=== PATIENT | male | born 1970 | race Caucasian/White ===

== ENCOUNTER 2016-11-29 12:33 | Emergency (ER) | payer MEDICAID ==
[~2016-11-29] VITALS: Ht 162.6 cm; Wt 73.5 kg
[~2016-11-29 12:33] MED LIST: EPIN0.3P4 IM; HYDR-3011 PO; HYDR-3720 PO; IBUP800T25 PO; METH-70 PO; PRED20TA PO
[2016-11-29 12:47] VITALS: Ht 162.6 cm; Wt 73.5 kg
[2016-11-29] MEDS ORDERED: SOD CHLORIDE 0.9% 1,000 ML IV STA (16:58)
[2016-11-29] MEDS ORDERED: ONDANSETRON 4 MG INJ IV STA (16:58)
[2016-11-29] MEDS ORDERED: KETOROLAC 30 MG INJ IV STA (16:58)
[2016-11-29 17:19] LABS: ADD SCAN DIFF NO
[2016-11-29 17:21] LABS: ADD UMIC NO; BASOPHIL # 0.1 10^3/ul (0.0-0.1); BASOPHILS % 0.6 % (0.0-2.0); EOSINOPHILS # 0.2 10^3/ul (0.0-0.5); EOSINOPHILS % 1.7 % (0.0-7.0); HEMATOCRIT 48.5 % (42.0-52.0); HEMOGLOBIN 16.3 g/dl (14.0-18.0); LYMPHOCYTES # 3.5 10^3/ul (0.8-2.9); LYMPHOCYTES % 39.9 % (15.0-51.0); MEAN CORPUSCULAR HEMOGLOBIN 29.6 pg (29.0-33.0); MEAN CORPUSCULAR HGB CONC 33.6 g/dl (32.0-37.0); MEAN PLATELET VOLUME 10.7 fl (7.4-10.4); MONOCYTE # 0.7 10^3/ul (0.3-0.9); MONOCYTES % 7.6 % (0.0-11.0); NEUTROPHIL # 4.4 10^3/ul (1.6-7.5); PLATELET COUNT 237 10^3/UL (140-415); RED BLOOD COUNT 5.51 10^6/ul (4.70-6.10); RED CELL DISTRIBUTION WIDTH 13.1 % (11.5-14.5); URINE BILIRUBIN (Dip) NEGATIVE (NEGATIVE); URINE BLOOD (Dip) NEGATIVE (NEGATIVE); URINE COLOR LT. YELLOW (YELLOW); URINE GLUCOSE (Dip) NEGATIVE (NEGATIVE); URINE KETONES (Dip) NEGATIVE (NEGATIVE); URINE LEUKOCYTE ESTERASE (Dip) NEGATIVE (NEGATIVE); URINE NITRITE (Dip) NEGATIVE (NEGATIVE); URINE TOTAL PROTEIN (Dip) NEGATIVE (NEGATIVE); URINE UROBILINOGEN (Dip) 0.2 E.U./dL (0.1-1.0); WHITE BLOOD COUNT 8.9 10^3/ul (4.8-10.8)
[2016-11-29 17:40] LABS: ALBUMIN 4.4 g/dl (3.3-4.9); POTASSIUM 3.7 mmol/L (3.5-5.1)
[2016-11-29 17:42] LABS: BILIRUBIN,INDIRECT 0.2 mg/dl (0-1.1); BILIRUBIN,TOTAL 0.2 mg/dl (0.2-1.3); CREATININE 0.66 mg/dl (0.61-1.24)
[2016-11-29 17:43] LABS: ALBUMIN/GLOBULIN RATIO 1.37; CALCIUM 9.2 mg/dl (8.4-10.2); TOTAL PROTEIN 7.6 g/dl (6.1-8.1)
--- NOTE | 2016-11-29 18:32 | ERD ---
ER Documentation Chief Complaint Date/Time DATE: 11/29/16 TIME: 18:26 Chief Complaint ap with n/v; chills x 3 days HPI This is a 46-year-old male that presents to the ER with left-sided flank pain that radiates to his abdomen. Patient has had nausea vomiting and chills. Vomiting is nonbilious nonbloody. He does not have any diarrhea. He does not have any fevers. Pain is severe and intermittent and sharp in quality. Patient has not traveled anywhere. ROS 12 point review of systems was done, all negative except per HPI. Medications Home Meds Active Scripts Ibuprofen* (Motrin*) 600 Mg Tab, 600 MG PO Q6, #30 TAB Prov:KIMBERLY TORRE 11/29/16 Ondansetron Hcl* (Zofran*) 4 Mg Tablet, 4 MG PO Q6H for NAUSEA AND/OR VOMITING, #30 TAB Prov:KIMBERLY TORRE 11/29/16 Hydrocodone/Acetaminophen ([place] 5-325 Tablet) 1 Each Tablet, 1 TAB PO Q6H Y for PAIN, #15 TAB Prov:KIMBERLY TORRE 11/29/16 Epinephrine (Epipen 2-Akshat) 0.3 Mg/0.3 Ml Pen.injctr, 0.3 MG IM DIRECTED Y for ALLERGIC REACTION, #1 EA Prov:LISA ARANGO MD 02/16/16 Hydroxyzine Hcl* (Hydroxyzine Hcl*) 25 Mg Tablet, 25 MG PO Q8H Y for ITCHING, # 30 TAB Prov:LISA ARANGO MD 02/16/16 Prednisone* (Prednisone*) 20 Mg Tab, 40 MG PO DAILY for 4 Days, TAB Prov:LISA ARANGO MD 02/16/16 Methocarbamol* (Robaxin*) 750 Mg Tablet, 750 MG PO TID, #20 TAB Prov:MARISSA CUISTPRINCE APaula DO 11/20/15 Hydrocodone Bit-Acetaminophen* ([place]*) 7.5-325 Tablet, 2 TAB PO Q4H Y for PAIN , #20 TAB Prov:MARISSA CUISTPRINCE APaula DO 11/20/15 Ibuprofen* (Motrin*) 800 Mg Tab, 800 MG PO Q6, #30 TAB Prov:MARISSA CUISTOLOS A. DO 11/20/15 Allergies Allergies: Coded Allergies: No Known Allergy (Unverified , 12/31/11) PMhx/Soc History of Surgery: Yes (appendectomy) Anesthesia Reaction: No Hx Neurological Disorder: No Hx Respiratory Disorders: No Hx Cardiac Disorders: No Hx Psychiatric Problems: No Hx Miscellaneous Medical Probl: Yes (gallstones) Hx Alcohol Use: No Hx Substance Use: No Hx Tobacco Use: No Physical Exam Vitals Vital Signs Date Time Temp Pulse Resp B/P Pulse Ox O2 Delivery O2 Flow Rate FiO2 11/29/16 12:47 98.1 92 18 121/84 98 Physical Exam GENERAL: The patient is well developed and appropriate for usual state of health , in no apparent distress. HEENT: Atraumatic. CHEST: Clear to auscultation bilaterally. There are no rales, wheezes or rhonchi. HEART: Regular rate and rhythm. No murmurs, clicks, rubs or gallops. ABDOMEN: Soft, nontender and nondistended. Good bowel sounds. No rebound or guarding. No gross peritonitis. No gross organomegaly or masses. No Marx sign or McBurney point tenderness. Tender to palpation in the left flank and in the LLQ BACK: No midline or flank tenderness. NEURO: Alert and oriented. SKIN: There is no apparent rash or petechia. The skin is warm and dry. Result Diagram: 11/29/16 1715 11/29/16 1715 Results 24 hrs Laboratory Tests Test 11/29/16 17:15 Alanine Aminotransferase (ALT/SGPT) 37IU/L Albumin 4.4g/dl Albumin/Globulin Ratio 1.37 Alkaline Phosphatase 71IU/L Anion Gap 17 Aspartate Amino Transf (AST/SGOT) 24IU/L Basophils # 0.110^3/ul Basophils % 0.6% Blood Urea Nitrogen 15mg/dl Calcium Level 9.2mg/dl Carbon Dioxide Level 27mmol/L Chloride Level 104mmol/L Creatinine 0.66mg/dl Direct Bilirubin 0.00mg/dl Eosinophils # 0.210^3/ul Eosinophils % 1.7% Globulin 3.20g/dl Glucose Level 86mg/dl Hematocrit 48.5% Hemoglobin 16.3g/dl Indirect Bilirubin 0.2mg/dl Lipase 71U/L Lymphocytes # 3.510^3/ul Lymphocytes % 39.9% Mean Corpuscular Hemoglobin 29.6pg Mean Corpuscular Hemoglobin Concent 33.6g/dl Mean Corpuscular Volume 88.0fl Mean Platelet Volume 10.7fl Monocytes # 0.710^3/ul Monocytes % 7.6% Neutrophils # 4.410^3/ul Neutrophils % 50.0% Nucleated Red Blood Cells # 0.010^3/ul Nucleated Red Blood Cells % 0.0/100WBC Platelet Count 87341^3/UL Potassium Level 3.7mmol/L Red Blood Count 5.5110^6/ul Red Cell Distribution Width 13.1% Sodium Level 144mmol/L Total Bilirubin 0.2mg/dl Total Protein 7.6g/dl Urine Bilirubin NEGATIVE Urine Clarity CLEAR Urine Color LT. YELLOW Urine Glucose NEGATIVE% Urine Hemoglobin NEGATIVE Urine Ketones NEGATIVE Urine Leukocyte Esterase NEGATIVE Urine Nitrite NEGATIVE Urine Specific [place] >=1.030 Urine Total Protein NEGATIVE Urine Urobilinogen 0.2 E.U./dL Urine pH 6.0 White Blood Count 8.910^3/ul Current Medications Medications (Trade) Dose Ordered Sig/Rell Route PRN Reason Start Time Stop Time Status Last Admin Dose Admin Sodium Chloride (NS) 1,000 ml @ 1,000 mls/hr Q1H STAT IV 11/29/16 16:58 11/29/16 17:57 DC 11/29/16 17:14 Ondansetron HCl (Zofran Inj) 4 mg ONCE STAT IV 11/29/16 16:58 11/29/16 17:00 DC 11/29/16 17:14 Ketorolac Tromethamine 30 mg 30 mg ONCE STAT IV 11/29/16 16:58 11/29/16 17:00 DC 11/29/16 17:14 Sodium Chloride (NS) 1,000 ml @ 1,000 mls/hr Q1H ONCE IV 11/29/16 19:00 11/29/16 19:59 11/29/16 19:26 Procedures/MDM EKG was taken and read by Dr. San [address] elevation no t wave inversion. Differential Diagnosis: GERD, gastritis, peptic ulcer disease, pancreatitis, cholecystitis, choledocholithiasis, biliary colic, cholangitis, [id number] , ACS/MO, Pnuemonia, diverticulitis, abdominal abscess, urolithiasis, sick, obstructive stone, AAA. This is a 46-year-old male presents to the ER with left -sided flank pain that radiates to his left abdomen. At this time there is no evidence of nephrolithiasis. There is no evidence of urinary tract infection, suspicion for pyelonephritis is low. Patient was found to have some gallstones. I doubt that this is related to patient's pain as he is complaining of left-sided abdominal pain. At this time etiology of his abdominal pain is unknown however there is no evidence for acute abdomen. His physical examination is benign he is afebrile and well-appearing. He will be sent home with Marilynn Vogel. Please follow-up with his primary care doctor within 1-2 days or return to ER sooner if symptoms worsen. My medical decision making was shared with the patient, he understands and agrees with plan. Departure Diagnosis: Primary Impression: Abdominal pain Condition: Stable KIMBERLY TORRE Nov 29, 2016 18:32
[2016-11-29] MEDS ORDERED: SOD CHLORIDE 0.9% 1,000 ML IV ONE (19:00)
--- NOTE | 2016-11-29 19:11 | RADRPT ---
PROCEDURE: CT Abdomen and Pelvis without contrast. CLINICAL INDICATION: Left flank pain and abdominal pain TECHNIQUE: CT scan of the abdomen and pelvis without contrast was performed without intravenous co ntrast. Coronal and sagittal reformatted images were obtained from the axial source images. Images were reviewed on a high-resolution PACS workstation. CTDI 13 mGy, DLP 717 mGy-cm One or more of the following dose reduction techniques were used: Automated exposure control Adjustment of the mA and/or kV according to patient size. Use of iterative reconstruction technique. COMPARISON: 02/11/2015 FINDINGS: There is mild bibasilar atelectasis. The heart size is normal. The aorta and its branches are normal in size and caliber. The kidneys are symmetric in size and density. There is no perinephric fat stranding. There is no ne phroureterolithiasis or hydronephrosis. The ureters are normal in course and caliber. Evaluation of solid organs is limited due to the lack of intravenous contrast. There are several gal lstones within the gallbladder as seen on the prior study. The liver is unremarkable. The spleen, adrenal glands, and pancreas are unremarkable. Evaluation of the gastrointestinal tract is limited due to the lack of oral contrast. The esophagus and stomach are unremarkable. The small bowel loops are normal in caliber without evidence of smal l bowel obstruction. There are several diverticula within the descending and sigmoid colon without evidence for diverticulitis. The appendix is not definitively visualized. There is no free intrape ritoneal fluid or pneumoperitoneum. There is no mesenteric, retroperitoneal, or pelvic lymphadenopathy. The bladder is mildly distended, but grossly unremarkable. The prostate and seminal vesicles are unr emarkable. There is no pelvic free fluid. There is slight prominence of fat within the bilateral in guinal canals. There are no acute fractures. Minimal degenerative disk disease is noted within the thoracolumbar s pine with small Schmorl's nodes at several levels. RPTAT: HTLT IMPRESSION: 1. No acute intra-abdominal abnormality. No nephroureterolithiasis or hydronephrosis. 2. Cholelithiasis. .Nicole Garsia MD, MD Date Time Electronically viewed and signed by .Nicole Garsia MD, MD on 11/29/2016 19:10 .T/
[2016-11-29] MEDS ORDERED: HYDR-906 PO (19:23)
[2016-11-29] MEDS ORDERED: ONDA4TAB8 PO (19:24)
[2016-11-29] MEDS ORDERED: IBUP-1542 PO (19:24)
[2016-11-29 21:28] VITALS: BP 124/67; PULSE 60; RESP 18; TEMP 98
== END 2016-11-29 21:30 | disposition home or self-care (01) ==
LOC: FTE 12:33
DX: R10.32 Left lower quadrant pain (principal); R11.2 Nausea with vomiting, unspecified
CPT/HCPCS: 36415; 74176; 80053; 81003; 83690; 85025; 93005; 96374; 96375; J1885; J2405; J7030; Z7502

== ENCOUNTER 2017-02-26 21:30 | Emergency (ER) | payer MEDICAID ==
[~2017-02-26] VITALS: Ht 162.6 cm; Wt 77.2 kg
[~2017-02-26 21:30] MED LIST changes: +HYDR-906 PO; +IBUP-1542 PO; +ONDA4TAB8 PO
[2017-02-26 21:33] VITALS: Ht 162.6 cm; Wt 77.2 kg
[2017-02-26] MEDS ORDERED: ONDANSETRON (ODT) 4 MG TAB ODT STA (23:53)
[2017-02-27] MEDS ORDERED: ALPRAZOLAM 1 MG TAB PO ONE
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
--- NOTE | 2017-02-27 02:38 | RADRPT ---
PROCEDURE: XR Chest. CLINICAL INDICATION: Chest pain TECHNIQUE: AP Portable chest. COMPARISON: 11/20/2015 FINDINGS: There is mild cardiomegaly. The lungs are clear. The osseous structures are unremarkable. IMPRESSION: No acute findings. RPTAT: HIKT .James Valencia MD, Date Time Electronically viewed and signed by .James Valencia MD, MD on 02/27/2017 02:38 .T/
[2017-02-27] MEDS ORDERED: ALPR0.25 PO (02:49)
[2017-02-27 02:59] VITALS: BP 132/78; PULSE 82; RESP 20; TEMP 98.6
== END 2017-02-27 03:00 | disposition home or self-care (01) ==
LOC: FTE 21:30
DX: F41.9 Anxiety disorder, unspecified (principal); R07.9 Chest pain, unspecified
CPT/HCPCS: 71010; 93005; Z7502; Z7610

== ENCOUNTER 2017-03-11 16:43 | Emergency (ER) | payer MEDICAID ==
[~2017-03-11] VITALS: Ht 152.4 cm; Wt 70.0 kg
[~2017-03-11 16:43] MED LIST changes: +ALPR0.25 PO
[2017-03-11 16:46] VITALS: Ht 152.4 cm; Wt 70.0 kg
[2017-03-11] MEDS ORDERED: IBUP-1542 PO (17:29)
[2017-03-11] MEDS ORDERED: KETOROLAC 30 MG INJ IM STA (18:16)
[2017-03-11] MEDS ORDERED: ONDANSETRON (ODT) 4 MG TAB ODT STA (18:16)
[2017-03-11] MEDS ORDERED: HYDR-902 PO (18:17)
[2017-03-11] MEDS ORDERED: ONDA4TAB14 PO (18:17)
--- NOTE | 2017-03-11 18:19 | QN ---
Documentation Comment The patient was seen, evaluated, treated and discharged from ER 2. Prior to walking out the patient complained that he did not receive an injection for pain medication. He describes approximately 1 month of shoulder pain. He states 3-4 visits to recent emergency room for pain. He is demanding IV or IM narcotic injection. Patient was diagnosed with a rotator cuff injury. The patient was informed that I will not provide him with IV or IM narcotics but I am happy to provide him with an injection of Toradol and provide him with oral narcotic pain medication for what appears to be a chronic shoulder injury. A carry out clerk and shelf stocker was used. Prior to leaving the emergency room the patient was given 30 mg IM Toradol, 10 mg [place] and Zofran. Prescription for [place] 12 tablets will be given to the patient. Please see documentation by physician's medical assistant float for full ER course diagnostic workup and discharge planning. KHUSHI JOHNSON MD Mar 11, 2017 18:19
[2017-03-11] MEDS ORDERED: HYDROCODONE/APAP (10/325) TAB PO ONE (18:30)
--- NOTE | 2017-03-16 01:23 | ERA ---
ER Documentation Chief Complaint Date/Time DATE: 03/16/17 TIME: 01:15 Chief Complaint Complains of arm pain here for a recheck HPI This is a 46-year-old male presents to the ED with a chief complaint of left shoulder pain. Patient has been seen at additional emergency rooms with same complaint. 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 Describes the pain is worse with movement and palpation. Patient states that the pain is 10 out of 10 and has been having trouble sleeping on the side. Denies mechanism of injury, history of trauma, medical conditions with similar symptoms in the past. ROS All systems reviewed and are negative except as per history of present illness. Medications Home Meds Active Scripts Ibuprofen* (Motrin*) 400 Mg Tab, 400 MG PO Q6, #30 TAB Prov:KASHMIR RECIO PA-C 03/13/17 Ondansetron (Ondansetron Odt) 4 Mg Tab.rapdis, 4 MG PO Q6H Y for NAUSEA AND/OR VOMITING, #30 TAB Prov:KHUSHI JOHNSON MD 03/11/17 Hydrocodone/Acetaminophen ([place] 10-325 Tablet) 1 Each Tablet, 1 TAB PO Q6H Y for PAIN, #12 TAB Prov:KHUSHI JOHNSON MD 03/11/17 Ibuprofen* (Motrin*) 600 Mg Tab, 600 MG PO Q6H Y for PAIN AND OR ELEVATED TEMP, #30 TAB Prov:KASHMIR RECIO PA-C 03/11/17 Alprazolam* (Xanax*) 0.25 Mg Tablet, 0.25 MG PO Q8H Y for ANXIETY, #10 TAB Prov:IVSHAL RIBERA NP 02/27/17 Ibuprofen* (Motrin*) 600 Mg Tab, 600 MG PO Q6, #30 TAB Prov:KIMBERLY TORRE 11/29/16 Ondansetron Hcl* (Zofran*) 4 Mg Tablet, 4 MG PO Q6H for NAUSEA AND/OR VOMITING, #30 TAB Prov:KIMBERLY TORRE C 11/29/16 Hydrocodone/Acetaminophen ([place] 5-325 Tablet) 1 Each Tablet, 1 TAB PO Q6H Y for PAIN, #15 TAB Prov:KIMBERLY TORRE 11/29/16 Epinephrine (Epipen 2-Akshat) 0.3 Mg/0.3 Ml Pen.injctr, 0.3 MG IM DIRECTED Y for ALLERGIC REACTION, #1 EA Prov:LISA ARANGO MD 02/16/16 Hydroxyzine Hcl* (Hydroxyzine Hcl*) 25 Mg Tablet, 25 MG PO Q8H Y for ITCHING, # 30 TAB Prov:LISA ARANGO MD 02/16/16 Prednisone* (Prednisone*) 20 Mg Tab, 40 MG PO DAILY for 4 Days, TAB Prov:LISA ARANGO MD 02/16/16 Methocarbamol* (Robaxin*) 750 Mg Tablet, 750 MG PO TID, #20 TAB Prov:LEKKOSMARISSASTOLOS A. DO 11/20/15 Hydrocodone Bit-Acetaminophen* ([place]*) 7.5-325 Tablet, 2 TAB PO Q4H Y for PAIN , #20 TAB Prov:LEDANIELLAOSAPOSTOLOS A. DO 11/20/15 Ibuprofen* (Motrin*) 800 Mg Tab, 800 MG PO Q6, #30 TAB Prov:LEKKOSAPOSTOLOS A. DO 11/20/15 Allergies Allergies: Coded Allergies: No Known Allergy (Unverified , 12/31/11) PMhx/Soc History of Surgery: Yes (appendectomy) Anesthesia Reaction: No Hx Neurological Disorder: No Hx Respiratory Disorders: No Hx Cardiac Disorders: No Hx Psychiatric Problems: No Hx Miscellaneous Medical Probl: Yes (gallstones) Hx Alcohol Use: No Hx Substance Use: No Hx Tobacco Use: No Smoking Status: Never smoker Physical Exam Physical Exam Const: Well-appearing 46-year-old male in mild distress. Head: Atraumatic Eyes: Normal Conjunctiva ENT: Normal External Ears, Nose and Mouth. Neck: Full range of motion..~ No meningismus. Resp: Clear to auscultation bilaterally Cardio: Regular rate and rhythm, no murmurs. Chest wall was tender to palpation from the anterior to posterior axillary line on the left side. Very light palpation reproduced pain. Deep inspiration does not reproduce pain. No hematoma or other skin abnormalities visualized. Abd: Soft, non tender, non distended. Normal bowel sounds Skin: No petechiae or rashes Back: No midline or flank tenderness Ext: Left shoulder limited range of motion secondary to pain. Physical examination was limited due to patient compliance. No tenderness to the left shoulder or AC joint. No step-off palpated. No laxity of ligaments. No cyanosis, or edema Neur: Awake and alert Psych: Normal Mood and Affect Results 24 hrs Current Medications Medications (Trade) Dose Ordered Sig/Rell Route PRN Reason Start Time Stop Time Status Last Admin Dose Admin Ketorolac Tromethamine (Toradol) 30 mg ONCE STAT IM 03/11/17 18:16 03/11/17 18:18 DC 03/11/17 18:24 Acetaminophen/ Hydrocodone Bitart ([place] (10/325)) 1 tab ONCE ONCE PO 03/11/17 18:30 03/11/17 18:31 DC 03/11/17 18:25 Ondansetron HCl (Zofran Odt) 4 mg ONCE STAT ODT 03/11/17 18:16 03/11/17 18:18 DC 03/11/17 18:24 Procedures/MDM Patient presents with signs and symptoms of rotator cuff syndrome as described in history and physical examination. Physical examination was limited due to patient compliance. There is no mechanism of injury and I have very little suspicion for any bony pathology at this time. Patient exhibited chest wall pain that was most consistent with costochondritis versus fibromyalgia type symptoms. Patient will be discharged with ibuprofen for pain relief as this is drug of choice. I have little suspicion for compartment syndrome or other causes of neurovascular compromise at this time. Patient has requested narcotics but have advised him that long-term narcotics are not the role of the ED and to be treated with such medications he should seek evaluation by mobile paint specialist. Have also advised the patient to follow-up with Ortho. Patient's vitals are stable and his current condition is appropriate for discharge. Patient will be discharged with ibuprofen. After much discussion the patient has agreed to the plan of management. Patient has no other complaints will be discharged at this time. Departure Diagnosis: Primary Impression: Rotator cuff syndrome of left shoulder Additional Impression: Costochondritis Condition: Stable Patient Instructions: Chest Wall Pain, Costochondritis, Tendonitis Referrals: COMMUNITY CLINICS YOU HAVE RECEIVED A MEDICAL SCREENING EXAM AND THE RESULTS INDICATE THAT YOU DO NOT HAVE A CONDITION THAT REQUIRES URGENT TREATMENT IN THE EMERGENCY DEPARTMENT. FURTHER EVALUATION AND TREATMENT OF YOUR CONDITION CAN WAIT UNTIL YOU ARE SEEN IN YOUR DOCTORS OFFICE WITHIN THE NEXT 1-2 DAYS. IT IS YOUR RESPONSIBILITY TO MAKE AN APPOINTMENT FOR FOLOW-UP CARE. IF YOU HAVE A PRIMARY DOCTOR --you should call your primary doctor and schedule an appointment IF YOU DO NOT HAVE A PRIMARY DOCTOR YOU CAN CALL OUR PHYSICIAN REFERRAL HOTLINE AT IF YOU CAN NOT AFFORD TO SEE A PHYSICIAN YOU CAN CHOSE FROM THE FOLLOWING [facility] [address] [facility] [address] [facility] [address] [facility] [facility] [address] [facility] [address] [facility]. [facility] [address] [facility]. [facility] () ted se king hecho un examen mdico de control que le indica que no est en ellis condicin que requiera tratamiento urgente en el Departamento de Emergencia. Un estudio ms profundo y el tratamiento de hilton condicin pueden esperar sin ningn riesgo hasta que usted sea atendida/o en el consultorio de hilton mdico o ellis cl savanah. Es responsabilidad suya arreglar ellis gabby para el seguimiento del jevon. MANEJO DE CONDICIONES NO URGENTES EN EL FUTURO 1) Si usted tiene un mdico de atencin primaria: Usted debera llamar a hilton mdico de atencin primaria antes de venir al departamento de emergencia. Despus de las horas de consultorio, hilton doctor o hilton asociado/a est disponible por telfono. El mdico o enfermero de wesley en el servicio telefnico puede asesorarle por allen medio para atender el problema, o jevon contrario se puede programar ellis gabby. 2) Si usted no tiene un mdico de atencin primaria: Llame al mdico o clnica de referencia que aparece abajo agustina las horas de consultorio para hacer ellis gabby para que le vean. CLINICAS: [facility] [phone] [facility] [phone] [facility] [phone] [facility] [phone] [place] [address] [phone] [facility]. [phone] [address] Additional Instructions: Follow up with your PCP within the next 1-3 days for a more thorough evaluation and a possible referral to a specialist. Return the the emergency department immediately if symptoms worsen or change. If you have any questions regarding medications, ask your pharmacist or us before you leave. If any adverse reactions occur while taking your medications, discontinue the treatment and return to the emergency department immediately. Take your medications as directed, and complete the entire course of treatment. KASHMIR RECIO PA-C Mar 16, 2017 01:22
== END 2017-03-11 17:44 | disposition home or self-care (01) ==
LOC: FTE 16:43 → E/R 16:43 → FTE 17:56
DX: M75.102 Unspecified rotator cuff tear or rupture of left shoulder, not specified as traumatic (principal); M94.0 Chondrocostal junction syndrome [Tietze]
CPT/HCPCS: J1885; Z7610; 96372

== ENCOUNTER 2017-03-13 17:05 | Emergency (ER) | payer MEDICAID ==
[~2017-03-13] VITALS: Ht 160 cm; Wt 70.0 kg
[~2017-03-13 17:05] MED LIST changes: +HYDR-902 PO; +ONDA4TAB14 PO
[2017-03-13 17:08] VITALS: Ht 160 cm; Wt 70.0 kg
--- NOTE | 2017-03-13 19:21 | ERA ---
ER Documentation Chief Complaint Date/Time DATE: 03/13/17 TIME: 19:17 Chief Complaint BIB SELF C/O LEFT SHOULDER PAIN SINCE SUNDAY. DENIES ANY TRAUMA HPI This is a 46-year-old male presented to the ED with a chief complaint of left shoulder pain. Patient was seen in the ED 2 days ago. Patient went to go see the primary care provider as directed with the primary care provider would not see the patient until the patient had paid. Patient states that the pain worsens with movement. Patient has taken Stollings and ibuprofen with little relief. Patient uses his arm at work quite often with overhead activities. Nursing notes have been reviewed and are consistent with the history given. ROS All systems reviewed and are negative except as per history of present illness. Medications Home Meds Active Scripts Ibuprofen* (Motrin*) 400 Mg Tab, 400 MG PO Q6, #30 TAB Prov:KASHMIR RECIO PA-C 03/13/17 Ondansetron (Ondansetron Odt) 4 Mg Tab.rapdis, 4 MG PO Q6H Y for NAUSEA AND/OR VOMITING, #30 TAB Prov:KHUSHI JOHNSON MD 03/11/17 Hydrocodone/Acetaminophen ([place] 10-325 Tablet) 1 Each Tablet, 1 TAB PO Q6H Y for PAIN, #12 TAB Prov:KHUSHI JOHNSON MD 03/11/17 Ibuprofen* (Motrin*) 600 Mg Tab, 600 MG PO Q6H Y for PAIN AND OR ELEVATED TEMP, #30 TAB Prov:KASHMIR RECIO PA-C 03/11/17 Alprazolam* (Xanax*) 0.25 Mg Tablet, 0.25 MG PO Q8H Y for ANXIETY, #10 TAB Prov:VISHAL RIBERA NP 02/27/17 Ibuprofen* (Motrin*) 600 Mg Tab, 600 MG PO Q6, #30 TAB Prov:KIMBERLY TORRE 11/29/16 Ondansetron Hcl* (Zofran*) 4 Mg Tablet, 4 MG PO Q6H for NAUSEA AND/OR VOMITING, #30 TAB Prov:KIMBERLY TORRE C 11/29/16 Hydrocodone/Acetaminophen ([place] 5-325 Tablet) 1 Each Tablet, 1 TAB PO Q6H Y for PAIN, #15 TAB Prov:KIMBERLY TORRE 11/29/16 Epinephrine (Epipen 2-Akshat) 0.3 Mg/0.3 Ml Pen.injctr, 0.3 MG IM DIRECTED Y for ALLERGIC REACTION, #1 EA Prov:LISA ARANGO MD 02/16/16 Hydroxyzine Hcl* (Hydroxyzine Hcl*) 25 Mg Tablet, 25 MG PO Q8H Y for ITCHING, # 30 TAB Prov:LISA ARANGO MD 02/16/16 Prednisone* (Prednisone*) 20 Mg Tab, 40 MG PO DAILY for 4 Days, TAB Prov:LISA ARANGO MD 02/16/16 Methocarbamol* (Robaxin*) 750 Mg Tablet, 750 MG PO TID, #20 TAB Prov:LEKKOS,APOSTOLOS A. DO 11/20/15 Hydrocodone Bit-Acetaminophen* ([place]*) 7.5-325 Tablet, 2 TAB PO Q4H Y for PAIN , #20 TAB Prov:LEKKOSAPOSTOLOS A. DO 11/20/15 Ibuprofen* (Motrin*) 800 Mg Tab, 800 MG PO Q6, #30 TAB Prov:LEKKOS,APOSTOLOS A. DO 11/20/15 Allergies Allergies: Coded Allergies: No Known Allergy (Unverified , 12/31/11) PMhx/Soc History of Surgery: Yes (appendectomy) Anesthesia Reaction: No Hx Neurological Disorder: No Hx Respiratory Disorders: No Hx Cardiac Disorders: No Hx Psychiatric Problems: No Hx Miscellaneous Medical Probl: Yes (gallstones) Hx Alcohol Use: No Hx Substance Use: No Hx Tobacco Use: No Smoking Status: Never smoker Physical Exam Vitals Vital Signs Date Time Temp Pulse Resp B/P Pulse Ox O2 Delivery O2 Flow Rate FiO2 03/13/17 17:08 98.7 70 18 121/77 97 Physical Exam Const: [] Head: Atraumatic Eyes: Normal Conjunctiva ENT: Normal External Ears, Nose and Mouth. Neck: Full range of motion..~ No meningismus. Resp: Clear to auscultation bilaterally Cardio: Regular rate and rhythm, no murmurs Abd: Soft, non tender, non distended. Normal bowel sounds Skin: No petechiae or rashes Back: No midline or flank tenderness Ext: No cyanosis, or edema Neur: Awake and alert Psych: Normal Mood and Affect Results 24 hrs Current Medications Medications (Trade) Dose Ordered Sig/Rell Route PRN Reason Start Time Stop Time Status Last Admin Dose Admin Acetaminophen/ Hydrocodone Bitart ([place] (5/325)) 1 tab ONCE ONCE PO 03/13/17 19:30 03/13/17 19:31 DC 03/13/17 20:18 Procedures/MDM Patient is returning to the ED for chief complaint of left shoulder pain. Patient is 46 years old and uses his arm a lot at work. Patient's most likely diagnosis is overuse syndrome. No mechanism of injury. Patient's physical show no tenderness to touch but decreased range of motion secondary to pain. There is no step-off at the AC joint. Patient was given Stollings in the ED with adequate relief of symptoms. X-ray was taken and read by the radiologist and given the following impression: IMPRESSION: 1. Probable interval first degree left AC joint separation. 2. Otherwise, unremarkable two-view left shoulder study. The current most likely diagnosis is AC shoulder separation. Patient will be given a sling and ibuprofen for symptomatic relief. Patient has been instructed to follow-up with Orth on the next 7 days and has been given a handout of possible orthopedic follow-up with. At this time I very little suspicion for compartment syndrome or other neurovascular compromise pathologies. Patient's vitals are stable and his current condition is appropriate for discharge. Departure Diagnosis: Primary Impression: Acromioclavicular joint separation, type 1 Qualified Code: S43.102A - Acromioclavicular joint separation, type 1, left, initial encounter Condition: Stable Additional Instructions: Follow up with your orthopedics in the next week for further evaluation. Return the the emergency department immediately if symptoms worsen or change. If you have any questions regarding medications, ask your pharmacist or us before you leave. If any adverse reactions occur while taking your medications, discontinue the treatment and return to the emergency department immediately. Take your medications as directed, and complete the entire course of treatment. KASHMIR RECIO PA-C Mar 13, 2017 19:21
[2017-03-13] MEDS ORDERED: HYDROCODONE/APAP (5/325) TAB PO ONE (19:30)
--- NOTE | 2017-03-13 20:07 | RADRPT ---
PROCEDURE: XR Left Shoulder CLINICAL INDICATION: Pain, no trauma TECHNIQUE: AP internal and external rotation views were submitted. COMPARISON: 11/20/2015 FINDINGS: Osseous structures: appear well mineralized and intact with no fracture or destructive process iden tified. Joint spaces: The glenohumeral joint appears unremarkable. There has been an interval increase to t he joint space at the left AC joint raising the possibility of a subtle separation. Soft tissues: appear unremarkable. IMPRESSION: 1. Probable interval first degree left AC joint separation. 2. Otherwise, unremarkable two-view left shoulder study. Physician Sandip Date Time Electronically viewed and signed by Physician Sandip on 03/13/2017 20:07 /
[2017-03-13] MEDS ORDERED: IBUP400T22 PO (20:23)
== END 2017-03-13 21:01 | disposition home or self-care (01) ==
LOC: FTE 17:05
DX: S43.102A Unspecified dislocation of left acromioclavicular joint, initial encounter (principal); X58.XXXA Exposure to other specified factors, initial encounter; Y92.9 Unspecified place or not applicable
CPT/HCPCS: 73030; Z7502; Z7610

== ENCOUNTER 2017-03-19 01:00 | Emergency (ER) | payer MEDICAID ==
[~2017-03-19] VITALS: Ht 170.2 cm; Wt 70.5 kg
[~2017-03-19 01:00] MED LIST changes: +IBUP400T22 PO
[2017-03-19 01:31] VITALS: Ht 170.2 cm; Wt 70.5 kg
[2017-03-19] MEDS ORDERED: morphine 4 MG/ML VIAL IV STA (02:20)
[2017-03-19] MEDS ORDERED: ONDANSETRON 4 MG INJ ONE (02:28)
[2017-03-19] MEDS ORDERED: HYDR-902 PO (03:21)
[2017-03-19 03:29] VITALS: BP 127/89; PULSE 78; RESP 16; TEMP 98.2
--- NOTE | 2017-03-19 03:34 | ERD ---
ER Documentation Chief Complaint Date/Time DATE: 03/19/17 TIME: 03:22 Chief Complaint left shoulder pain, arm in sling HPI This is a 46-year-old male, shoulder pain. Is been a multiple times the past 2 weeks for this. He has not follow-up with primary care physician. No new trauma. No other issues. ROS All systems reviewed and are negative except as per history of present illness. Medications Home Meds Active Scripts Hydrocodone/Acetaminophen ([place] 10-325 Tablet) 1 Each Tablet, 1 TAB PO Q6H Y for PAIN, #20 TAB Prov:BRITTNEY WINTER 03/19/17 Ibuprofen* (Motrin*) 400 Mg Tab, 400 MG PO Q6, #30 TAB Prov:KASHMIR RECIO PA-C 03/13/17 Ondansetron (Ondansetron Odt) 4 Mg Tab.rapdis, 4 MG PO Q6H Y for NAUSEA AND/OR VOMITING, #30 TAB Prov:KHUSHI JOHNSON MD 03/11/17 Hydrocodone/Acetaminophen ([place] 10-325 Tablet) 1 Each Tablet, 1 TAB PO Q6H Y for PAIN, #12 TAB Prov:KHUSHI JOHNSON MD 03/11/17 Ibuprofen* (Motrin*) 600 Mg Tab, 600 MG PO Q6H Y for PAIN AND OR ELEVATED TEMP, #30 TAB Prov:KASHMIR RECIO PA-C 03/11/17 Alprazolam* (Xanax*) 0.25 Mg Tablet, 0.25 MG PO Q8H Y for ANXIETY, #10 TAB Prov:VISHAL RIBERA NP 02/27/17 Ibuprofen* (Motrin*) 600 Mg Tab, 600 MG PO Q6, #30 TAB Prov:KIMBERLY TORRE 11/29/16 Ondansetron Hcl* (Zofran*) 4 Mg Tablet, 4 MG PO Q6H for NAUSEA AND/OR VOMITING, #30 TAB Prov:KIMBERLY TORRE 11/29/16 Hydrocodone/Acetaminophen ([place] 5-325 Tablet) 1 Each Tablet, 1 TAB PO Q6H Y for PAIN, #15 TAB Prov:KIMBERLY TORRE 11/29/16 Epinephrine (Epipen 2-Akshat) 0.3 Mg/0.3 Ml Pen.injctr, 0.3 MG IM DIRECTED Y for ALLERGIC REACTION, #1 EA Prov:LISA ARANGO MD 02/16/16 Hydroxyzine Hcl* (Hydroxyzine Hcl*) 25 Mg Tablet, 25 MG PO Q8H Y for ITCHING, # 30 TAB Prov:LISA ARANGO MD 02/16/16 Prednisone* (Prednisone*) 20 Mg Tab, 40 MG PO DAILY for 4 Days, TAB Prov:LISA ARANGO MD 02/16/16 Methocarbamol* (Robaxin*) 750 Mg Tablet, 750 MG PO TID, #20 TAB Prov:LEDANIELLAOSMARISSASTOLOS A. DO 11/20/15 Hydrocodone Bit-Acetaminophen* ([place]*) 7.5-325 Tablet, 2 TAB PO Q4H Y for PAIN , #20 TAB Prov:LEMARISSA LISTOLOS A. DO 11/20/15 Ibuprofen* (Motrin*) 800 Mg Tab, 800 MG PO Q6, #30 TAB Prov:MARISSA CUISTOLOS A. DO 11/20/15 Allergies Allergies: Coded Allergies: No Known Allergy (Unverified , 12/31/11) PMhx/Soc History of Surgery: Yes (appendectomy) Anesthesia Reaction: No Hx Neurological Disorder: No Hx Respiratory Disorders: No Hx Cardiac Disorders: No Hx Psychiatric Problems: No Hx Miscellaneous Medical Probl: Yes (gallstones) Hx Alcohol Use: No Hx Substance Use: No Hx Tobacco Use: No Physical Exam Vitals Vital Signs Date Time Temp Pulse Resp B/P Pulse Ox O2 Delivery O2 Flow Rate FiO2 03/19/17 01:31 97.6 79 18 134/90 99 Physical Exam Const: [] Head: Atraumatic Eyes: Normal Conjunctiva ENT: Normal External Ears, Nose and Mouth. Neck: Full range of motion..~ No meningismus. Resp: Clear to auscultation bilaterally Cardio: Regular rate and rhythm, no murmurs Abd: Soft, non tender, non distended. Normal bowel sounds Skin: No petechiae or rashes Back: No midline or flank tenderness Ext: No cyanosis, or edema Neur: Awake and alert Psych: Normal Mood and Affect Results 24 hrs Current Medications Medications (Trade) Dose Ordered Sig/Rell Route PRN Reason Start Time Stop Time Status Last Admin Dose Admin Morphine Sulfate (morphine) 4 mg ONCE STAT IV 03/19/17 02:20 03/19/17 02:21 DC 03/19/17 02:27 Ondansetron HCl (Zofran Inj) 4 mg STK-MED ONCE .ROUTE 03/19/17 02:28 03/19/17 02:29 DC Procedures/MDM Medical decision-making: Patient is a subacute shoulder pain. At this point clinically stable. Placed in shoulder immobilizer. Follow with PCP. Departure Diagnosis: Primary Impression: Shoulder pain Laterality: unspecified laterality Chronicity: unspecified Qualified Code: M25.519 - Shoulder pain, unspecified chronicity, unspecified laterality Condition: Stable Patient Instructions: Shoulder Pain (Uncertain Cause) BRITTNEY WINTER Mar 19, 2017 03:33
== END 2017-03-19 03:34 | disposition home or self-care (01) ==
LOC: E/R 01:00
DX: M25.512 Pain in left shoulder (principal)
CPT/HCPCS: 96374; J2270; Z7502; J2405

== ENCOUNTER 2017-06-07 16:40 | Emergency (ER) | payer MEDICAID ==
[~2017-06-07] VITALS: Ht 121.9 cm; Wt 70.5 kg
[~2017-06-07 16:40] MED LIST changes: -METH-70 PO; +METH750T93 PO
[2017-06-07 17:07] VITALS: Ht 121.9 cm; Wt 70.5 kg
[2017-06-07] MEDS ORDERED: BACITRACIN 0.9 GM OINT TOP ONE (19:30)
[2017-06-07] MEDS ORDERED: HYDROCODONE/APAP (5/325) TAB PO ONE (19:30)
[2017-06-07] MEDS ORDERED: DIPHTH/TET/ACEL PERTUSS (ADULT) 0.5 ML VIAL IM* ONE (19:30)
[2017-06-07] MEDS ORDERED: ONDANSETRON (ODT) 4 MG TAB ODT STA (20:07)
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
[2017-06-07] MEDS ORDERED: BACITUD TOP (20:38)
[2017-06-07] MEDS ORDERED: IBUP-1542 PO (20:38)
== END 2017-06-07 21:08 | disposition home or self-care (01) ==
LOC: FTE 16:40
DX: S50.812A Abrasion of left forearm, initial encounter (principal); Y08.89XA Assault by other specified means, initial encounter; Z23 Encounter for immunization
CPT/HCPCS: 73090; 90471; 90715; Z7502; Z7610

== ENCOUNTER 2017-12-10 11:45 | Emergency (ER) | END 2017-12-10 15:39 | disposition home or self-care (01) ==

== ENCOUNTER 2018-02-23 03:27 | Emergency (ER) | END 2018-02-23 06:09 | disposition home or self-care (01) ==

== ENCOUNTER 2018-04-16 19:20 | Emergency (ER) | END 2018-04-16 22:40 | disposition home or self-care (01) ==

== ENCOUNTER 2018-08-03 23:55 | Emergency (ER) | END 2018-08-04 02:10 | disposition home or self-care (01) ==

== ENCOUNTER → 2018-12-31 | Emergency (ER) | payer OTHER ==
[~2018-12-31] VITALS: Ht 157.5 cm; Wt 72.2 kg
[~2018-12-31] MED LIST changes: +ACETAMINOPHEN 325 MG TAB PO ONE; +BACI28.34 TOP; +BACITUD TOP; +CEPH-443 PO; -HYDR-3011 PO; +HYDR-3980 PO; +HYDR-4011 PO; +HYDR-843 PO; -HYDR-902 PO; -HYDR-906 PO; +HYDROCODONE/APAP (5/325) TAB PO ONE; +IBUP-1561 PO; -IBUP400T22 PO; -IBUP800T25 PO; +IBUP800T48 PO; +KETOCONAZOLE TOP; +LIDOCAINE 1% (MPF) 5 ML VIAL INFIL ONE; +SULF1TAB31 PO
[2018-12-31 17:07] VITALS: Ht 157.5 cm; Wt 72.2 kg
--- NOTE | 2018-12-31 20:35 | ERD ---
ER Documentation Chief Complaint Chief Complaint LEFT LEG PAIN AND ABSCESS X 4 DAYS HPI 48-year-old male has been history of diabetes presents for left buttock nodule times 4 days. He states that the nodule has been draining for the last day. He has 8 out of 10 pain, constant pain. It is sharp with radiation down his left leg. He states that walking makes the pain worse. Denies fevers or chills. Denies chest pain or shortness of breath. Denies pain, nausea, vomiting. ROS All systems reviewed and are negative except as per history of present illness. Medications Home Meds Active Scripts Hydrocodone/Acetaminophen (Amelia 5-325 Tablet) 1 Each Tablet, 1 EACH PO Q6H PRN for PAIN, #10 TAB Prov:KASHMIR BRASWELL DO 12/31/18 Cephalexin* (Keflex*) 500 Mg Capsule, 500 MG PO TID for abscess for 5 Days, #15 CAP Prov:KASHMIR BRASWELL DO 12/31/18 Sulfamethoxazole/Trimethoprim* (Bactrim Ds* Tablet) 1 Each Tablet, 1 TAB PO BID for abscess for 5 Days, #10 TAB Prov:KASHMIR BRASWELL DO 12/31/18 [ketoconazol] 2% CR No Conflict Check, 1 APPLIC TOP BID for balanitis , #60 GM 0 Refills Prov:DREW ESTEVEZ 08/04/18 Bacitracin* (Bacitracin Zinc Oint*) 28.35 Gm Oint, 1 APPLIC TOP BID, #1 TUB APPLI TO Prov:BRITTNEY CABEZAS PA-C 04/16/18 Ibuprofen* (Ibuprofen*) 600 Mg Tablet, 600 MG PO Q6, #20 TAB Prov:KASHMIR JORDAN MD 02/23/18 Ondansetron (Ondansetron Odt) 4 Mg Tab.rapdis, 4 MG PO Q6H PRN for NAUSEA AND/OR VOMITING, #10 TAB Prov:KASHMIR JORDAN MD 12/10/17 Hydrocodone/Acetaminophen (Amelia 5-325 Tablet) 1 Each Tablet, 1 TAB PO Q6H PRN for PAIN, #7 TAB Prov:KASHMIR JORDAN MD 12/10/17 Ibuprofen* (Motrin*) 600 Mg Tab, 600 MG PO Q6, #30 TAB Prov:REE GUTIERREZ PA-C 06/07/17 Bacitracin* (Bacitracin Oint (UD)*) 1 Applic Oint, 1 APPLIC TOP BID for 7 Days, PKT APPLY TO Prov:REE GUTIERREZ PA-C 06/07/17 Hydrocodone/Acetaminophen (Amelia 10-325 Tablet) 1 Each Tablet, 1 TAB PO Q6H PRN for PAIN, #20 TAB Prov:EWAASHBRITTNEY Natali 03/19/17 Ibuprofen* (Motrin*) 400 Mg Tab, 400 MG PO Q6, #30 TAB Prov:KASHMIR RECIO PA-C 03/13/17 Ondansetron (Ondansetron Odt) 4 Mg Tab.rapdis, 4 MG PO Q6H PRN for NAUSEA AND/OR VOMITING, #30 TAB Prov:KHUSHI JOHNSON MD 03/11/17 Hydrocodone/Acetaminophen (Amelia 10-325 Tablet) 1 Each Tablet, 1 TAB PO Q6H PRN for PAIN, #12 TAB Prov:KHUSHI JOHNSON MD 03/11/17 Ibuprofen* (Motrin*) 600 Mg Tab, 600 MG PO Q6H PRN for PAIN AND OR ELEVATED TEMP, #30 TAB Prov:KASHMIR RECIO PA-C 03/11/17 Alprazolam* (Xanax*) 0.25 Mg Tablet, 0.25 MG PO Q8H PRN for ANXIETY, #10 TAB Prov:VISHAL RIBERA NP 02/27/17 Ibuprofen* (Motrin*) 600 Mg Tab, 600 MG PO Q6, #30 TAB Prov:KIMBERLY TORRE 11/29/16 Ondansetron Hcl* (Zofran*) 4 Mg Tablet, 4 MG PO Q6H for NAUSEA AND/OR VOMITING, #30 TAB Prov:KIMBERLY TORRE 11/29/16 Hydrocodone/Acetaminophen (Amelia 5-325 Tablet) 1 Each Tablet, 1 TAB PO Q6H PRN for PAIN, #15 TAB Prov:KIMBERLY TORRE 11/29/16 Epinephrine (Epipen 2-Akshat) 0.3 Mg/0.3 Ml Pen.injctr, 0.3 MG IM DIRECTED PRN for ALLERGIC REACTION, #1 EA Prov:LISA ARANGO MD 02/16/16 Hydroxyzine Hcl* (Hydroxyzine Hcl*) 25 Mg Tablet, 25 MG PO Q8H PRN for ITCHING, #30 TAB Prov:LISA ARANGO MD 02/16/16 Prednisone* (Prednisone*) 20 Mg Tab, 40 MG PO DAILY for 4 Days, TAB Prov:LISA ARANGO MD 02/16/16 Methocarbamol* (Robaxin*) 750 Mg Tablet, 750 MG PO TID, #20 TAB Prov:LEDANIELLAOSMARISSASTOLOS A. DO 11/20/15 Hydrocodone Bit-Acetaminophen* (Amelia*) 7.5-325 Tablet, 2 TAB PO Q4H PRN for PAIN, #20 TAB Prov:LEKKOS,APOSTOLOS A. DO 11/20/15 Ibuprofen* (Motrin*) 800 Mg Tab, 800 MG PO Q6, #30 TAB Prov:LEKKOS,APOSTOLOS A. DO 11/20/15 Allergies Allergies: Coded Allergies: No Known Allergy (Unverified , 12/31/11) PMhx/Soc History of Surgery: Yes (appendectomy, gallbladder removal) Anesthesia Reaction: No Hx Neurological Disorder: No Hx Respiratory Disorders: No Hx Cardiac Disorders: No Hx Psychiatric Problems: No Hx Miscellaneous Medical Probl: Yes (DM) Hx Alcohol Use: Yes (occasional) Hx Substance Use: No Hx Tobacco Use: No Smoking Status: Never smoker Physical Exam Vitals Vital Signs Date Temp Pulse Resp B/P (MAP) Pulse Ox O2 O2 Flow FiO2 Time Delivery Rate 12/31/18 98.3 86 18 160/90 99 17:07 (113) Physical Exam Const: No acute distress Resp: Clear to auscultation bilaterally Cardio: Regular rate and rhythm, no murmurs Skin: 2 cm nodule noted over the left buttock area with erythema, small pus discharge noted Back: No midline or flank tenderness Ext: No cyanosis, or edema Neur: Awake and alert Psych: Normal Mood and Affect Results 24 hrs Current Medications Medications Dose Sig/Rell Start Time Status Last (Trade) Ordered Route PRN Stop Time Admin Dose Reason Admin 650 mg ONCE ONCE 12/31/18 DC 12/31/18 Acetaminophen PO 18:00 12/31/18 18:16 (Tylenol 18:01 Tab) Lidocaine 5 ml ONCE ONCE 12/31/18 DC (Xylocaine INFIL 19:00 12/31/18 1% (Mpf)) 19:01 1 tab ONCE ONCE 12/31/18 DC 12/31/18 Acetaminophen PO 20:00 12/31/18 19:45 / 20:01 Hydrocodone Bitart (Amelia (5/)) Procedures/MDM Abscess Incision and Drainage with irrigation by me: Location: Left buttock Anesthesia: Local 1% Lidocaine Technique: Irrigated. Disrupted loculations w/ instrumentation Packing: None Complications: Neurovascularly intact post procedure 48 hour wound check. Scar minimization instructions given. Medical Decision Making: Differential diagnosis includes but not limited to left buttock abscess, cyst, cellulitis, dermatitis Patient appeared well on physical exam. Physical examination of the left buttock nodule consistent with an abscess. ED course: Patient was given Tylenol and Amelia. Symptoms improved with treatment. Incision and drainage of the abscess was done, see procedure note above Prescription(s): Patient given prescription for supportive medication(s) and antibiotics, short course of low-dose Amelia was given for pain.. Patient advised to follow up with PCP in 1-2 days. Patient advised to return to ED for new or worsening symptoms. Patient stable on discharge from the ED. The patient has been prescribed Amelia during this encounter. The patient has been warned about the use of narcotics. The patient should not drive or operate heavy machinery while taking this medication. The patient was also warned about the addictive properties of narcotic medications. Narcan prescription was NOT provided given the following criteria 1. No more than 5 tablets of Amelia 10 mg or 10 tablets of Amelia 5 mg were prescribed. 2. Concomitant opiate and benzodiazepine prescriptions were not provided. 3. There is no obvious evidence of prior history of opiate abuse or overdose. Disclaimer: Inadvertent spelling and grammatical errors are likely due to EHR/dictation software use and do not reflect on the overall quality of patient care. Also, please note that the electronic time recorded on this note does not necessarily reflect the actual time of the patient encounter. Departure Diagnosis: Primary Impression: Abscess Condition: Fair Patient Instructions: Abscess, Incision And Drainage Referrals: [facility] YOU HAVE RECEIVED A MEDICAL SCREENING EXAM AND THE RESULTS INDICATE THAT YOU DO NOT HAVE A CONDITION THAT REQUIRES URGENT TREATMENT IN THE EMERGENCY DEPARTMENT. FURTHER EVALUATION AND TREATMENT OF YOUR CONDITION CAN WAIT UNTIL YOU ARE SEEN IN YOUR DOCTORS OFFICE WITHIN THE NEXT 1-2 DAYS. IT IS YOUR RESPONSIBILITY TO MAKE AN APPOINTMENT FOR FOLOW-UP CARE. IF YOU HAVE A PRIMARY DOCTOR --you should call your primary doctor and schedule an appointment IF YOU DO NOT HAVE A PRIMARY DOCTOR YOU CAN CALL OUR PHYSICIAN REFERRAL HOTLINE AT IF YOU CAN NOT AFFORD TO SEE A PHYSICIAN YOU CAN CHOSE FROM THE FOLLOWING [facility] [address] [facility] [address] [facility] [address] [facility] [address] [facility]. [facility] [address] [facility]. [facility]. [address] Additional Instructions: Llame al doctor MAANA y chad ellis IVAN PARA DENTRO DE 1-2 HERNÁNDEZ.Dgale a la secretaria que nosotros le instruimos hacer esta ivan.Avise o llame si hilton condicin se empeora antes de la ivan. Regresa aqui si peor o no mejor. Call your primary care doctor TOMORROW for an appointment during the next 1-2 days.See the doctor sooner or return here if your condition worsens before your appointment time. leave dressing on for 12 hours, may remove afterwards. Sitz bath twice daily for 5 days return to ER in 48 hours for wound check. KASHMIR BRASWELL DO Dec 31, 2018 20:35
[2018-12-31 20:44] VITALS: BP 132/93; PULSE 68; RESP 20
== END | disposition home or self-care (01) ==
LOC: FTE 17:02
DX: L02.31 Cutaneous abscess of buttock (principal); E11.9 Type 2 diabetes mellitus without complications
CPT/HCPCS: 10060; Z7502; Z7610

== ENCOUNTER 2019-01-30 23:58 | Emergency (ER) | payer OTHER ==
[~2019-01-30] VITALS: Ht 160 cm; Wt 73.5 kg
[~2019-01-30 23:58] MED LIST changes: -ACETAMINOPHEN 325 MG TAB PO ONE; -HYDROCODONE/APAP (5/325) TAB PO ONE; -LIDOCAINE 1% (MPF) 5 ML VIAL INFIL ONE
[2019-01-31 00:03] VITALS: Ht 160 cm; Wt 73.5 kg
[2019-01-31] MEDS ORDERED: KETOROLAC 30 MG INJ IM STA (03:06)
[2019-01-31] MEDS ORDERED: LIDOCAINE 1% (MPF) 5 ML VIAL INFIL ONE (03:30)
[2019-01-31] MEDS ORDERED: TRIMETHOPRIM/SULFAMETHOX (DS) TAB PO ONE (03:30)
[2019-01-31] MEDS ORDERED: CEFTRIAXONE 1 GM INJ IM ONE (03:30)
[2019-01-31] MEDS ORDERED: HYDROCODONE/APAP (5/325) TAB PO ONE (03:30)
[2019-01-31] MEDS ORDERED: ACET-141 PO (03:47)
[2019-01-31] MEDS ORDERED: NAPR-985 PO (03:47)
[2019-01-31] MEDS ORDERED: MUPI22OI2 TOP (03:47)
[2019-01-31] MEDS ORDERED: CEPH-443 PO (03:48)
[2019-01-31] MEDS ORDERED: SULF1TAB31 PO (03:48)
--- NOTE | 2019-01-31 03:54 | ERD ---
ER Documentation Chief Complaint Chief Complaint ABSCESS IN GLUTEAL AREA HPI History of Present Illness: 48-year-old male with history of diabetes coming in today with complaint of possible abscess to inner gluteal cheeks. Patient reports symptoms have been present for the past 4 days in which she is having difficulty sitting down. Patient reports having an abscess in the same area last month when she was given cephalexin and Bactrim. Patient reports that it went away but has returned. Patient also reporting bilateral feet pain, denies wounds; " it is just pain", denies burning. At home pharmacological/nonpharmacological treatment for symptoms: Denies Denies social concerns; Denies recent foreign travel ROS All systems reviewed and are negative except as per history of present illness. Medications Home Meds Active Scripts Sulfamethoxazole/Trimethoprim* (Bactrim Ds* Tablet) 1 Each Tablet, 1 TAB PO BID for ABSCESS/SKIN INFECTION for 10 Days, #20 TAB Prov:SILKE ROSARIO V RIM ROLLER SETTER 01/31/19 Cephalexin* (Keflex*) 500 Mg Capsule, 500 MG PO QID for ABSCESS/SKIN INFECTION for 10 Days, CAP Prov:SILKE ROSARIO V RIM ROLLER SETTER 01/31/19 Mupirocin* (Bactroban*) 2% -22 Gram Oint...g., 1 APPLIC TOP BID for SKIN INFECTION for 10 Days, EA Prov:SILKE ROSARIO NP 01/31/19 Acetaminophen* (Acetaminophen*) 500 MG Extra Strength Tablet, 1000 MG PO Q6H PRN for PAIN AND OR ELEVATED TEMP, #30 TAB Prov:SILKE ROSARIO V RIM ROLLER SETTER 01/31/19 Naproxen* (Naprosyn*) 500 Mg Tablet, 500 MG PO BID PRN for PAIN AND/OR INFLAMMATION, #30 TAB Prov:SILKE ROSARIO V RIM ROLLER SETTER 01/31/19 Hydrocodone/Acetaminophen ([place] 5-325 Tablet) 1 Each Tablet, 1 EACH PO Q6H PRN for PAIN, #10 TAB Prov:KASHMIR BRASWELL DO 12/31/18 Cephalexin* (Keflex*) 500 Mg Capsule, 500 MG PO TID for abscess for 5 Days, #15 CAP Prov:KASHMIR BRASWELL DO 12/31/18 Sulfamethoxazole/Trimethoprim* (Bactrim Ds* Tablet) 1 Each Tablet, 1 TAB PO BID for abscess for 5 Days, #10 TAB Prov:KASHMIR BRASWELL DO 12/31/18 [ketoconazol] 2% CR No Conflict Check, 1 APPLIC TOP BID for balanitis , #60 GM 0 Refills Prov:DREW ESTEVEZ 08/04/18 Bacitracin* (Bacitracin Zinc Oint*) 28.35 Gm Oint, 1 APPLIC TOP BID, #1 TUB APPLI TO Prov:BRITTNEY CABEZAS PA-C 04/16/18 Ibuprofen* (Ibuprofen*) 600 Mg Tablet, 600 MG PO Q6, #20 TAB Prov:KASHMIR JORDAN MD 02/23/18 Ondansetron (Ondansetron Odt) 4 Mg Tab.rapdis, 4 MG PO Q6H PRN for NAUSEA AND/OR VOMITING, #10 TAB Prov:KASHMIR JORDAN MD 12/10/17 Hydrocodone/Acetaminophen ([place] 5-325 Tablet) 1 Each Tablet, 1 TAB PO Q6H PRN for PAIN, #7 TAB Prov:KASHMIR JORDAN MD 12/10/17 Ibuprofen* (Motrin*) 600 Mg Tab, 600 MG PO Q6, #30 TAB Prov:REE GUTIERREZ PA-C 06/07/17 Bacitracin* (Bacitracin Oint (UD)*) 1 Applic Oint, 1 APPLIC TOP BID for 7 Days, PKT APPLY TO Prov:REE GUTIERREZ PA-C 06/07/17 Hydrocodone/Acetaminophen ([place] 10-325 Tablet) 1 Each Tablet, 1 TAB PO Q6H PRN for PAIN, #20 TAB Prov:BRITTNEY WINTER 03/19/17 Ibuprofen* (Motrin*) 400 Mg Tab, 400 MG PO Q6, #30 TAB Prov:KASHMIR RECIO PA-C 03/13/17 Ondansetron (Ondansetron Odt) 4 Mg Tab.rapdis, 4 MG PO Q6H PRN for NAUSEA AND/OR VOMITING, #30 TAB Prov:KHUSHI JOHNSON MD 03/11/17 Hydrocodone/Acetaminophen ([place] 10-325 Tablet) 1 Each Tablet, 1 TAB PO Q6H PRN for PAIN, #12 TAB Prov:KHUSHI JOHNSON MD 03/11/17 Ibuprofen* (Motrin*) 600 Mg Tab, 600 MG PO Q6H PRN for PAIN AND OR ELEVATED TEMP, #30 TAB Prov:KASHMIR RECIO PA-C 03/11/17 Alprazolam* (Xanax*) 0.25 Mg Tablet, 0.25 MG PO Q8H PRN for ANXIETY, #10 TAB Prov:VISHAL RIBERA NP 02/27/17 Ibuprofen* (Motrin*) 600 Mg Tab, 600 MG PO Q6, #30 TAB Prov:KIMBERLY TORRE 11/29/16 Ondansetron Hcl* (Zofran*) 4 Mg Tablet, 4 MG PO Q6H for NAUSEA AND/OR VOMITING, #30 TAB Prov:KIMBERLY TORRE 11/29/16 Hydrocodone/Acetaminophen ([place] 5-325 Tablet) 1 Each Tablet, 1 TAB PO Q6H PRN for PAIN, #15 TAB Prov:KIMBERLY TORRE 11/29/16 Epinephrine (Epipen 2-Akshat) 0.3 Mg/0.3 Ml Pen.injctr, 0.3 MG IM DIRECTED PRN for ALLERGIC REACTION, #1 EA Prov:LISA ARANGO MD 02/16/16 Hydroxyzine Hcl* (Hydroxyzine Hcl*) 25 Mg Tablet, 25 MG PO Q8H PRN for ITCHING, #30 TAB Prov:LISA ARANGO MD 02/16/16 Prednisone* (Prednisone*) 20 Mg Tab, 40 MG PO DAILY for 4 Days, TAB Prov:LISA RAANGO MD 02/16/16 Methocarbamol* (Robaxin*) 750 Mg Tablet, 750 MG PO TID, #20 TAB Prov:EARNEST CUI DO 11/20/15 Hydrocodone Bit-Acetaminophen* ([place]*) 7.5-325 Tablet, 2 TAB PO Q4H PRN for PAIN, #20 TAB Prov:MARISSA CUISTALYSSAS APaula DO 11/20/15 Ibuprofen* (Motrin*) 800 Mg Tab, 800 MG PO Q6, #30 TAB Prov:LEDANIELLAOSAPOSTOLOS A. DO 11/20/15 Allergies Allergies: Coded Allergies: No Known Allergy (Unverified , 12/31/11) PMhx/Soc History of Surgery: Yes (appendectomy, gallbladder removal) Anesthesia Reaction: No Hx Neurological Disorder: No Hx Respiratory Disorders: No Hx Cardiac Disorders: No Hx Psychiatric Problems: No Hx Miscellaneous Medical Probl: Yes (DM) Hx Alcohol Use: Yes (occasional) Hx Substance Use: No Hx Tobacco Use: No Smoking Status: Never smoker FmHx Family History: diabetes; No coronary disease Physical Exam Vitals Vital Signs Date Temp Pulse Resp B/P (MAP) Pulse Ox O2 O2 Flow FiO2 Time Delivery Rate 01/31/19 97.5 66 20 134/87 98 00:03 (103) Physical Exam Const: No acute distress Head: Atraumatic Eyes: Normal Conjunctiva ENT: Normal External Ears, Nose and Mouth. Neck: Full range of motion. No meningismus. Resp: Clear to auscultation bilaterally Cardio: Regular rate and rhythm, no murmurs Abd: Soft, non tender, non distended. Normal bowel sounds Skin: No petechiae or rashes; small half centimeter abscess noted to inside of gluteal cheeks, left cheek. No fluctuance, no warmth, positive induration, tenderness to palpation, positive erythema, mild purulent drainage. Back: No midline or flank tenderness Ext: No cyanosis, or edema Neur: Awake and alert Psych: Normal Mood and Affect Results 24 hrs Current Medications Medications Dose Sig/Rell Start Time Status Last (Trade) Ordered Route PRN Stop Time Admin Dose Reason Admin Ketorolac 30 mg ONCE STAT 01/31/19 DC 01/31/19 Tromethamine IM 03:06 03:24 (Toradol) 01/31/19 03:10 1 tab ONCE ONCE 01/31/19 DC 01/31/19 Acetaminophen PO 03:30 03:25 / 01/31/19 03:31 Hydrocodone Bitart ([place] (5/325)) Ceftriaxone 1 gm ONCE ONCE 01/31/19 DC 01/31/19 Sodium IM 03:30 03:24 (Rocephin) 01/31/19 03:31 1 tab ONCE ONCE 01/31/19 DC 01/31/19 Trimethoprim/ PO 03:30 03:25 01/31/19 03:31 Sulfamethoxaz ole (Bactrim (Ds)) Lidocaine 2.1 ml ONCE ONCE 01/31/19 DC 01/31/19 (Xylocaine INFIL 03:30 03:25 1% (Mpf)) 01/31/19 03:31 Procedures/MDM ED course includes a thorough examination and history. Medications: Ceftriaxone, Bactrim, [place], ketorolac (patient reports pain is severe, unable to sit down, patient appears anxious due to abscess) Imaging: -- Labs: Low suspicion for life-threatening medical emergency. Low suspicion for infectious emergency that requires hospitalization at this time. Low suspicion for foot wound that requires hospitalization for antibiotics. Otherwise healthy patient presenting with constellation of symptoms likely representing uncomplicated [x] as characterized by history, physical exam findings. Patient reassessment @0350: Patient hemodynamically stable. No respiratory distress, otherwise relatively well appearing and nontoxic. Disposition given. Patient educated on diagnoses, prescriptions, follow-up care, return precautions. Strict return precautions given for worsening condition; questions answered discharge. Disposition for discharge with followup in 2 days with PCP/clinic. Departure Diagnosis: Primary Impression: Abscess Additional Impressions: Pain in both feet History of diabetes mellitus Condition: Stable Patient Instructions: Abscess, Antiobiotic Treatment Only Referrals: [facility] YOU HAVE RECEIVED A MEDICAL SCREENING EXAM AND THE RESULTS INDICATE THAT YOU DO NOT HAVE A CONDITION THAT REQUIRES URGENT TREATMENT IN THE EMERGENCY DEPARTMENT. FURTHER EVALUATION AND TREATMENT OF YOUR CONDITION CAN WAIT UNTIL YOU ARE SEEN IN YOUR DOCTORS OFFICE WITHIN THE NEXT 1-2 DAYS. IT IS YOUR RESPONSIBILITY TO MAKE AN APPOINTMENT FOR FOLOW-UP CARE. IF YOU HAVE A PRIMARY DOCTOR --you should call your primary doctor and schedule an appointment IF YOU DO NOT HAVE A PRIMARY DOCTOR YOU CAN CALL OUR PHYSICIAN REFERRAL HOTLINE AT IF YOU CAN NOT AFFORD TO SEE A PHYSICIAN YOU CAN CHOSE FROM THE FOLLOWING [facility] [address] [facility] [address] [facility]. [facility] [address] [facility] [address] [facility] [address] [facility]. [facility]. [address] [facility]. [facility] YOU HAVE RECEIVED A MEDICAL SCREENING EXAM AND THE RESULTS INDICATE THAT YOU DO NOT HAVE A CONDITION THAT REQUIRES URGENT TREATMENT IN THE EMERGENCY DEPARTMENT. FURTHER EVALUATION AND TREATMENT OF YOUR CONDITION CAN WAIT UNTIL YOU ARE SEEN IN YOUR DOCTORS OFFICE WITHIN THE NEXT 1-2 DAYS. IT IS YOUR RESPONSIBILITY TO MAKE AN APPOINTMENT FOR FOLOW-UP CARE. IF YOU HAVE A PRIMARY DOCTOR --you should call your primary doctor and schedule and appointment IF YOU DO NOT HAVE A PRIMARY DOCTOR YOU CAN CALL OUR PHYSICIAN REFERRAL HOTLINE AT . IF YOU CAN NOT AFFORD TO SEE A PHYSICIAN YOU CAN CHOSE FROM THE FOLLOWING [facility] INSTITUTIONS: [facility] [address] [place] [address] [facility] [address] [place] [address] [facility] [address] [place] [address] Additional Instructions: Thank you very much for allowing us to participate in your care. Your health and safety is our top priority at [facility]. It is important to read all discharge instructions and education provided in your discharge packet. *The naproxen will help with your feet pain as well. This is likely related to your diabetes or possibly plantar fasciitis. Talk to your primary care doctor for further evaluation and plan of care. You may can get a referral to personal loan specialist/foot doctor.* Call your primary care doctor TOMORROW for an appointment during the next 2-4 days and bring all the information and medications prescribed. Have prescriptions filled and follow precisely the directions on the label. -Naproxen is a anti-inflammatory/pain medication; take this medication daily as prescribed for the next week to help with swelling/inflammation/pain. --Acetaminophen as a medication for pain and/or fever. Take this medication as needed for mild to moderate pain. This medication will not cause drowsiness. -Cephalexin, Bactrim, Bactroban ointment are all antibiotics; take all of these medication every day as listed on your prescription. You must complete the entire course of treatment that is listed on your prescription this is very important because it takes a certain number of days to kill the bacteria that is causing the infection. If the symptoms get worse and your provider is unavailable, return to the Emergency Department immediately. SILKE ROSARIO NP January 31, 2019 03:54
[2019-01-31 04:24] VITALS: BP 124/83; PULSE 64; RESP 16
== END 2019-01-31 04:25 | disposition home or self-care (01) ==
LOC: FTE 23:58
DX: L02.31 Cutaneous abscess of buttock (principal); M79.671 Pain in right foot; M79.672 Pain in left foot; E11.9 Type 2 diabetes mellitus without complications
CPT/HCPCS: 96372; J0696; J1885; Z7502; Z7610

== ENCOUNTER 2019-03-11 23:52 | Emergency (ER) | payer OTHER ==
[~2019-03-11] VITALS: Ht 160 cm; Wt 73.4 kg
[~2019-03-11 23:52] MED LIST changes: +ACET-141 PO; +MUPI22OI2 TOP; +NAPR-985 PO
[2019-03-11 23:58] VITALS: Ht 160 cm; Wt 73.4 kg
[2019-03-12] MEDS ORDERED: CLOT30CR24 TOP (02:45)
[2019-03-12] MEDS ORDERED: ACET1TAB40 PO (02:45)
[2019-03-12 03:22] VITALS: BP 118/76; PULSE 78; RESP 16
--- NOTE | 2019-03-15 14:50 | ERD ---
ER Documentation Chief Complaint Chief Complaint RIGHT TOE 4TH BLISTER X4DAYS HPI 48yo M presents for evaluation of blister to the base of the right 4th toe x 4 days. Pt has history of DM and expresses concern for infection. Rates pain from blister as 7/10, but also notes chronic neuropathy and unable to state if pain purely from blister or chronic neuropathy. Pt denies swelling of the affected digit, purulent discharge, fever, chills, or sweats. ROS All systems reviewed and are negative except as per history of present illness. CONSTITUTIONAL: Denies fever, Denies chills, Denies general weakness. SKIN: Denies itching, Denies rash, Denies redness. RESPIRATORY: Denies SOB, Denies cough. CARDIOVASCULAR: Denies chest pain, Denies palpitations GI: Denies nausea, Denies vomiting, Denies diarrhea, Denies abd pain. : Denies dysuria, Denies urgency, Denies hematuria NEURO: Denies focal weakness, Denies slurred speech, Denies gait problems PSYCHIATRIC: Denies change mental status, Denies confusion Medications Home Meds Active Scripts Acetaminophen with Codeine (Acetaminophen-Cod #3 Tablet) 1 Each Tablet, 1 TAB PO Q6H PRN for PAIN, #5 TAB Prov:LAWRENCE BYERS PA-C 03/12/19 Clotrimazole* (Clotrimazole* AF) 1% - 30 Gm Cream.gm., 1 APPLIC TOP BID for 7 Days, TUB Prov:LAWRENCE BYERS PA-C 03/12/19 Sulfamethoxazole/Trimethoprim* (Bactrim Ds* Tablet) 1 Each Tablet, 1 TAB PO BID for ABSCESS/SKIN INFECTION for 10 Days, #20 TAB Prov:SILKE ROSARIO NP 01/31/19 Cephalexin* (Keflex*) 500 Mg Capsule, 500 MG PO QID for ABSCESS/SKIN INFECTION for 10 Days, CAP Prov:SILKE ROSARIO NP 01/31/19 Mupirocin* (Bactroban*) 2% -22 Gram Oint...g., 1 APPLIC TOP BID for SKIN INFECTION for 10 Days, EA Prov:SILKE ROSARIO NP 01/31/19 Acetaminophen* (Acetaminophen*) 500 MG Extra Strength Tablet, 1000 MG PO Q6H PRN for PAIN AND OR ELEVATED TEMP, #30 TAB Prov:SILKE ROSARIO V BROOM WORKER 01/31/19 Naproxen* (Naprosyn*) 500 Mg Tablet, 500 MG PO BID PRN for PAIN AND/OR INFLAMMATION, #30 TAB Prov:SILKE ROSARIO V BROOM WORKER 01/31/19 Hydrocodone/Acetaminophen (Gideon 5-325 Tablet) 1 Each Tablet, 1 EACH PO Q6H PRN for PAIN, #10 TAB Prov:KASHMIR BRASWELL DO 12/31/18 Cephalexin* (Keflex*) 500 Mg Capsule, 500 MG PO TID for abscess for 5 Days, #15 CAP Prov:KASHMIR BRASWELL DO 12/31/18 Sulfamethoxazole/Trimethoprim* (Bactrim Ds* Tablet) 1 Each Tablet, 1 TAB PO BID for abscess for 5 Days, #10 TAB Prov:KASHMIR BRASWELL DO 12/31/18 [ketoconazol] 2% CR No Conflict Check, 1 APPLIC TOP BID for balanitis , #60 GM 0 Refills Prov:DREW ESTEVEZ 08/04/18 Bacitracin* (Bacitracin Zinc Oint*) 28.35 Gm Oint, 1 APPLIC TOP BID, #1 TUB APPLI TO Prov:BRITTNEY CABEZAS PA-C 04/16/18 Ibuprofen* (Ibuprofen*) 600 Mg Tablet, 600 MG PO Q6, #20 TAB Prov:KASHMIR JORDAN MD 02/23/18 Ondansetron (Ondansetron Odt) 4 Mg Tab.rapdis, 4 MG PO Q6H PRN for NAUSEA AND/OR VOMITING, #10 TAB Prov:KASHMIR JORDAN MD 12/10/17 Hydrocodone/Acetaminophen (Gideon 5-325 Tablet) 1 Each Tablet, 1 TAB PO Q6H PRN for PAIN, #7 TAB Prov:KASHMIR JORDAN MD 12/10/17 Ibuprofen* (Motrin*) 600 Mg Tab, 600 MG PO Q6, #30 TAB Prov:REE GUTIERREZ PA-C 06/07/17 Bacitracin* (Bacitracin Oint (UD)*) 1 Applic Oint, 1 APPLIC TOP BID for 7 Days, PKT APPLY TO Prov:REE GUTIERREZ PA-C 06/07/17 Hydrocodone/Acetaminophen (Gideon 10-325 Tablet) 1 Each Tablet, 1 TAB PO Q6H PRN for PAIN, #20 TAB Prov:EWAASHBRITTNEY Natali 03/19/17 Ibuprofen* (Motrin*) 400 Mg Tab, 400 MG PO Q6, #30 TAB Prov:KASHMIR RECIO PA-C 03/13/17 Ondansetron (Ondansetron Odt) 4 Mg Tab.rapdis, 4 MG PO Q6H PRN for NAUSEA AND/OR VOMITING, #30 TAB Prov:KHUSHI JOHNSON MD 03/11/17 Hydrocodone/Acetaminophen (Gideon 10-325 Tablet) 1 Each Tablet, 1 TAB PO Q6H PRN for PAIN, #12 TAB Prov:KHUSHI JOHNSON MD 03/11/17 Ibuprofen* (Motrin*) 600 Mg Tab, 600 MG PO Q6H PRN for PAIN AND OR ELEVATED TEMP, #30 TAB Prov:KASHMIR RECIO PA-C 03/11/17 Alprazolam* (Xanax*) 0.25 Mg Tablet, 0.25 MG PO Q8H PRN for ANXIETY, #10 TAB Prov:VISHAL RIBERA NP 02/27/17 Ibuprofen* (Motrin*) 600 Mg Tab, 600 MG PO Q6, #30 TAB Prov:KIMBERLY TORRE 11/29/16 Ondansetron Hcl* (Zofran*) 4 Mg Tablet, 4 MG PO Q6H for NAUSEA AND/OR VOMITING, #30 TAB Prov:KIMBERLY TORRE 11/29/16 Hydrocodone/Acetaminophen (Gideon 5-325 Tablet) 1 Each Tablet, 1 TAB PO Q6H PRN for PAIN, #15 TAB Prov:KIMBERLY TORRE 11/29/16 Epinephrine (Epipen 2-Akshat) 0.3 Mg/0.3 Ml Pen.injctr, 0.3 MG IM DIRECTED PRN for ALLERGIC REACTION, #1 EA Prov:LISA ARANGO MD 02/16/16 Hydroxyzine Hcl* (Hydroxyzine Hcl*) 25 Mg Tablet, 25 MG PO Q8H PRN for ITCHING, #30 TAB Prov:LISA ARANGO MD 02/16/16 Prednisone* (Prednisone*) 20 Mg Tab, 40 MG PO DAILY for 4 Days, TAB Prov:LISA ARANGO MD 02/16/16 Methocarbamol* (Robaxin*) 750 Mg Tablet, 750 MG PO TID, #20 TAB Prov:EARNEST CUI DO 11/20/15 Hydrocodone Bit-Acetaminophen* (Gideon*) 7.5-325 Tablet, 2 TAB PO Q4H PRN for PAIN, #20 TAB Prov:EARNEST CUI DO 11/20/15 Ibuprofen* (Motrin*) 800 Mg Tab, 800 MG PO Q6, #30 TAB Prov:EARNEST CUI DO 11/20/15 Allergies Allergies: Coded Allergies: No Known Allergy (Unverified , 12/31/11) PMhx/Soc History of Surgery: Yes (appendectomy, gallbladder removal) Anesthesia Reaction: No Hx Neurological Disorder: No Hx Respiratory Disorders: No Hx Cardiac Disorders: No Hx Psychiatric Problems: No Hx Miscellaneous Medical Probl: Yes (DM) Hx Alcohol Use: Yes (occasional) Hx Substance Use: No Hx Tobacco Use: No Smoking Status: Never smoker Physical Exam Vitals Vital Signs Date Temp Pulse Resp B/P (MAP) Pulse Ox O2 O2 Flow FiO2 Time Delivery Rate 03/12/19 98.0 78 16 118/76 98 Room Air 03:22 (90) 03/11/19 97.8 73 19 133/72 100 23:58 (92) Physical Exam Const: No acute distress Head: Atraumatic Eyes: Normal Conjunctiva ENT: Normal External Ears, Nose and Mouth. Neck: Full range of motion. No meningismus. Resp: Clear to auscultation bilaterally Cardio: Regular rate and rhythm, no murmurs Skin: No petechiae. Visible erythema and crusting to the plantar surface and along the toes of the bilateral feet. No warmth, no edema, no discharge. 1 visible intact blister to the base of the distal phalynx of the right 4th toe. No discharge, no surrounding erythema, no warmth. Ext: No cyanosis, or edema Neur: Awake and alert Psych: Normal Mood and Affect Procedures/MDM MDM: 48yo M presents for evaluation of blister to base of the Right 4th toe x 4 days. Physical exam findings consistent for pressure blister with incidental tinea pedis. At this time I have low suspicion for cellulitis, MRSA, impetigo, herpes-simplex virus, burn, abscess, or other emergent bacterial infection. Pt vital signs stable, afebrile, pulse 73. At this time pt stable for discharge with outpatient management. Will be discharged home with prescription for clotrimazole and 5 tabs Tylenol#3 d/t pt rating pain as 7/10. CURES report negative for recent opioid use. Pt to f/u with PCP within next 1-2 days for further management. ED return precautions discussed. Pt expressed verbal understanding and agreement to treatment plan. All questions addressed and answered. Departure Diagnosis: Primary Impression: Blister of toe Encounter type: initial encounter Laterality: right Qualified Codes: S90.424A - Blister (nonthermal), right lesser toe(s), initial encounter Additional Impression: Tinea pedis Laterality: bilateral Qualified Codes: B35.3 - Tinea pedis Condition: Good Patient Instructions: Jeet, Athlete'S Foot LAWRENCE BYERS PA-C Mar 15, 2019 14:46
== END 2019-03-12 03:22 | disposition home or self-care (01) ==
LOC: FTE 23:52
DX: S90.424A Blister (nonthermal), right lesser toe(s), initial encounter (principal); B35.3 Tinea pedis; E11.9 Type 2 diabetes mellitus without complications; X58.XXXA Exposure to other specified factors, initial encounter; Y92.9 Unspecified place or not applicable
CPT/HCPCS: 99282

== ENCOUNTER 2019-04-14 14:51 | Emergency (ER) | payer SELFPAY ==
[~2019-04-14] VITALS: Ht 165.1 cm; Wt 72.8 kg
[~2019-04-14 14:51] MED LIST changes: +ACET1TAB40 PO; +CLOT30CR24 TOP
[2019-04-14 14:58] VITALS: Ht 165.1 cm; Wt 72.8 kg
--- NOTE | 2019-04-14 15:09 | EN ---
Date/Time of Note Date/Time of Note DATE: 04/14/19 TIME: 15:07 ER Progress Note Medical screening [id number] male with history of diabetes, not currently taking medication due to lapse of insurance. Complains of 1 day history of vomiting, abdominal pain, left arm pain. EKG shows no STEMI, blood sugar 183. ED 1 appropriate for active vomiting KATE YATES MD Apr 14, 2019 15:09
--- NOTE | 2019-04-14 15:23 | ERD ---
ER Documentation Chief Complaint Chief Complaint vomiting, abdominal pain HPI The patient is a 48-year-old male, presenting with insomnia dizziness and nausea that began last night. He now complained about vague abdominal pain that began around 2 PM today, had similar symptom previously, denies fever, chills, neck pain, chest pain, dyspnea. He denies dysuria, diarrhea, constipation. He is able to take metformin however he has not been taking his medication for more than a month, denies smoking drinking or using illicit drug Past medical history: Diabetes mellitus Social history: Appendectomy, cholecystectomy ROS All systems reviewed and are negative except as per history of present illness. Medications Home Meds Active Scripts Ibuprofen* (Motrin*) 600 Mg Tab, 600 MG PO Q6H PRN for PAIN AND OR ELEVATED TEMP, #20 TAB Prov:KASHMIR JORDAN MD 04/14/19 Reported Medications Sulfamethoxazole/Trimethoprim* (Bactrim Ds* Tablet) 1 Each Tablet, 1 TAB PO BID, TAB 04/14/19 Ibuprofen* (Motrin*) 400 Mg Tab, 400 MG PO Q8H PRN for PAIN, TAB 04/14/19 Discontinued Scripts Acetaminophen with Codeine (Acetaminophen-Cod #3 Tablet) 1 Each Tablet, 1 TAB PO Q6H PRN for PAIN, #5 TAB Prov:LAWRENCE BYERS PA-C 03/12/19 Clotrimazole* (Clotrimazole* AF) 1% - 30 Gm Cream.gm., 1 APPLIC TOP BID for 7 Days, TUB Prov:LAWRENCE BYERS PA-C 03/12/19 Sulfamethoxazole/Trimethoprim* (Bactrim Ds* Tablet) 1 Each Tablet, 1 TAB PO BID for ABSCESS/SKIN INFECTION for 10 Days, #20 TAB Prov:SILKE ROSARIO NP 01/31/19 Cephalexin* (Keflex*) 500 Mg Capsule, 500 MG PO QID for ABSCESS/SKIN INFECTION for 10 Days, CAP Prov:SILKE ROSARIO NP 01/31/19 Mupirocin* (Bactroban*) 2% -22 Gram Oint...g., 1 APPLIC TOP BID for SKIN INFECTION for 10 Days, EA Prov:SILKE ROSARIO NP 01/31/19 Acetaminophen* (Acetaminophen*) 500 MG Extra Strength Tablet, 1000 MG PO Q6H PRN for PAIN AND OR ELEVATED TEMP, #30 TAB Prov:SILKE ROSARIO V ANALOG IC DESIGN ARCHITECT 01/31/19 Naproxen* (Naprosyn*) 500 Mg Tablet, 500 MG PO BID PRN for PAIN AND/OR INFLAMMATION, #30 TAB Prov:SILKE ROSARIO V ANALOG IC DESIGN ARCHITECT 01/31/19 Hydrocodone/Acetaminophen (Verdi 5-325 Tablet) 1 Each Tablet, 1 EACH PO Q6H PRN for PAIN, #10 TAB Prov:KASHMIR BRASWELL DO 12/31/18 Cephalexin* (Keflex*) 500 Mg Capsule, 500 MG PO TID for abscess for 5 Days, #15 CAP Prov:KASHMIR BRASWELL DO 12/31/18 Sulfamethoxazole/Trimethoprim* (Bactrim Ds* Tablet) 1 Each Tablet, 1 TAB PO BID for abscess for 5 Days, #10 TAB Prov:KASHMIR BRASWELL DO 12/31/18 [ketoconazol] 2% CR No Conflict Check, 1 APPLIC TOP BID for balanitis , #60 GM 0 Refills Prov:DREW ESTEVEZ 08/04/18 Bacitracin* (Bacitracin Zinc Oint*) 28.35 Gm Oint, 1 APPLIC TOP BID, #1 TUB APPLI TO Prov:BRITTNEY CABEZAS PA-C 04/16/18 Ibuprofen* (Ibuprofen*) 600 Mg Tablet, 600 MG PO Q6, #20 TAB Prov:KASHMIR JORDAN MD 02/23/18 Ondansetron (Ondansetron Odt) 4 Mg Tab.rapdis, 4 MG PO Q6H PRN for NAUSEA AND/OR VOMITING, #10 TAB Prov:KASHMIR JORDAN MD 12/10/17 Hydrocodone/Acetaminophen (Verdi 5-325 Tablet) 1 Each Tablet, 1 TAB PO Q6H PRN for PAIN, #7 TAB Prov:KASHMIR JORDAN MD 12/10/17 Ibuprofen* (Motrin*) 600 Mg Tab, 600 MG PO Q6, #30 TAB Prov:REE GUTIERREZ PA-C 06/07/17 Bacitracin* (Bacitracin Oint (UD)*) 1 Applic Oint, 1 APPLIC TOP BID for 7 Days, PKT APPLY TO Prov:REE GUTIERREZ PA-C 06/07/17 Hydrocodone/Acetaminophen (Verdi 10-325 Tablet) 1 Each Tablet, 1 TAB PO Q6H PRN for PAIN, #20 TAB Prov:BRITTNEY WINTERPaula 03/19/17 Ibuprofen* (Motrin*) 400 Mg Tab, 400 MG PO Q6, #30 TAB Prov:KASHMIR RECIO PA-C 03/13/17 Ondansetron (Ondansetron Odt) 4 Mg Tab.rapdis, 4 MG PO Q6H PRN for NAUSEA AND/OR VOMITING, #30 TAB Prov:KHUSHI JOHNSON MD 03/11/17 Hydrocodone/Acetaminophen (Verdi 10-325 Tablet) 1 Each Tablet, 1 TAB PO Q6H PRN for PAIN, #12 TAB Prov:KHUSHI JOHNSON MD 03/11/17 Ibuprofen* (Motrin*) 600 Mg Tab, 600 MG PO Q6H PRN for PAIN AND OR ELEVATED TEMP, #30 TAB Prov:KASHMIR RECIO PA-C 03/11/17 Alprazolam* (Xanax*) 0.25 Mg Tablet, 0.25 MG PO Q8H PRN for ANXIETY, #10 TAB Prov:VISHAL RIBERA NP 02/27/17 Ibuprofen* (Motrin*) 600 Mg Tab, 600 MG PO Q6, #30 TAB Prov:KIMBERLY TORRE 11/29/16 Ondansetron Hcl* (Zofran*) 4 Mg Tablet, 4 MG PO Q6H for NAUSEA AND/OR VOMITING, #30 TAB Prov:KIMBERLY TORRE 11/29/16 Hydrocodone/Acetaminophen (Verdi 5-325 Tablet) 1 Each Tablet, 1 TAB PO Q6H PRN for PAIN, #15 TAB Prov:KIMBERLY TORRE 11/29/16 Epinephrine (Epipen 2-Akshat) 0.3 Mg/0.3 Ml Pen.injctr, 0.3 MG IM DIRECTED PRN for ALLERGIC REACTION, #1 EA Prov:LISA ARANGO MD 02/16/16 Hydroxyzine Hcl* (Hydroxyzine Hcl*) 25 Mg Tablet, 25 MG PO Q8H PRN for ITCHING, #30 TAB Prov:LISA ARANGO MD 02/16/16 Prednisone* (Prednisone*) 20 Mg Tab, 40 MG PO DAILY for 4 Days, TAB Prov:LISA ARANGO MD 02/16/16 Methocarbamol* (Robaxin*) 750 Mg Tablet, 750 MG PO TID, #20 TAB Prov:RONNIE CUIS Bro. DO 11/20/15 Hydrocodone Bit-Acetaminophen* (Verdi*) 7.5-325 Tablet, 2 TAB PO Q4H PRN for PAIN, #20 TAB Prov:MARISSA CUISTOLOS A. DO 11/20/15 Ibuprofen* (Motrin*) 800 Mg Tab, 800 MG PO Q6, #30 TAB Prov:MARISSA CUISTOLOS A. DO 11/20/15 Allergies Allergies: Coded Allergies: No Known Allergy (Unverified , 04/14/19) PMhx/Soc History of Surgery: Yes (appendectomy, gallbladder removal) Anesthesia Reaction: No Hx Neurological Disorder: No Hx Respiratory Disorders: No Hx Cardiac Disorders: No Hx Psychiatric Problems: No Hx Miscellaneous Medical Probl: Yes (DM) Hx Alcohol Use: Yes (occasional) Hx Substance Use: No Hx Tobacco Use: No Physical Exam Vitals Vital Signs Date Temp Pulse Resp B/P (MAP) Pulse Ox O2 O2 Flow FiO2 Time Delivery Rate 04/14/19 97.4 66 15 119/95 98 Room Air 18:55 (103) 04/14/19 64 17 113/84 100 Room Air 17:39 (94) 04/14/19 65 17 125/96 100 Room Air 16:30 (106) 04/14/19 98.1 93 18 143/88 98 14:58 (106) Physical Exam Const: No acute distress. Head: Atraumatic. Eyes: Normal Conjunctiva. ENT: Normal External Ears, Nose and Mouth. Neck: Full range of motion. No meningismus. Resp: Clear to auscultation bilaterally. Cardio: Regular rate and rhythm. Abd: Soft, non distended, normal bowel sounds, vague left-sided abdominal discomfort, no rigidity/rebound/CVA tenderness Skin: No petechiae or rashes. Back: No midline or flank tenderness. Ext: No cyanosis, or edema. Neur: Awake and alert. No focal deficit Psych: Anxious Result Diagram: 04/14/19 1525 04/14/19 1525 Results 24 hrs Laboratory Tests Test 04/14/19 15:04 04/14/19 15:25 04/14/19 15:27 04/14/19 17:49 Bedside Glucose 183 mg/dL 174 mg/dL White Blood Count 7.1 10^3/ul Red Blood Count 5.36 10^6/ul Hemoglobin 15.3 g/dl Hematocrit 46.2 % Mean Corpuscular 86.2 fl Volume Mean Corpuscular 28.5 pg Hemoglobin Mean Corpuscular 33.1 g/dl Hemoglobin Concent Red Cell 13.3 % Distribution Width Platelet Count 228 10^3/UL Mean Platelet 10.8 fl Volume Immature 0.400 % Granulocytes % Neutrophils % 63.3 % Lymphocytes % 28.8 % Monocytes % 6.2 % Eosinophils % 0.7 % Basophils % 0.6 % Nucleated Red Blood 0.0 /100WBC Cells % Immature 0.030 10^3/ul Granulocytes # Neutrophils # 4.5 10^3/ul Lymphocytes # 2.1 10^3/ul Monocytes # 0.4 10^3/ul Eosinophils # 0.1 10^3/ul Basophils # 0.0 10^3/ul Nucleated Red Blood 0.0 10^3/ul Cells # Sodium Level 141 mmol/L Potassium Level 3.8 mmol/L Chloride Level 106 mmol/L Carbon Dioxide 24 mmol/L Level Anion Gap 11 Blood Urea Nitrogen 14 mg/dl Creatinine 0.65 mg/dl Est Glomerular > 60 mL/min Filtrat Rate mL/min Glucose Level 187 mg/dl Calcium Level 9.1 mg/dl Total Bilirubin 0.4 mg/dl Direct Bilirubin 0.00 mg/dl Indirect Bilirubin 0.4 mg/dl Aspartate Amino 24 IU/L Transf (AST/SGOT) Alanine 36 IU/L Aminotransferase (A LT/SGPT) Alkaline 80 IU/L Phosphatase Total Protein 7.7 g/dl Albumin 4.3 g/dl Globulin 3.40 g/dl Albumin/Globulin 1.26 Ratio Lipase 81 U/L Bedside Urine pH 5.5 (LAB) Bedside Urine Negative Protein (LAB) Bedside Urine Negative Glucose (UA) Bedside Urine 2+ Ketones (LAB) Bedside Urine Blood Negative Bedside Urine Negative Nitrite (LAB) Bedside Urine Negative Leukocyte Esterase (L Current Medications Medications Dose Sig/Rell Start Time Status Last (Trade) Ordered Route PRN Stop Time Admin Dose Reason Admin Ondansetron 4 mg ONCE STAT 04/14/19 DC 04/14/19 HCl (Zofran IV 15:27 15:32 Inj) 04/14/19 15:30 Ketorolac 30 mg ONCE STAT 04/14/19 DC 04/14/19 Tromethamine IV 15:27 15:32 (Toradol) 04/14/19 15:30 Sodium 1,000 ml @ Q1H ONCE 04/14/19 DC 04/14/19 Chloride 1,000 mls/hr IV 17:00 16:37 04/14/19 17:59 Procedures/MDM [place] [id number] Radiology Main Line: [phone] DIAGNOSTIC IMAGING REPORT Patient: JING RUTLEDGE : 1970 Age: 48 Sex: M MR #: [id number] DOS: 04/14/19 1527 Ordering MD: KASHMIR JORDAN MD Location: E/R Room/Bed: PROCEDURE: CT Abdomen and Pelvis without contrast. CLINICAL INDICATION: Abdominal pain TECHNIQUE: CT of the abdomen and pelvis without IV contrast. Coronal and sagittal reformatted images. DICOM images are available. One or more of the following dose reduction techniques were used: automated exposure control, adjustment of the mA and/or kV according to patient size, use of iterative reconstruction technique. CTDI 11.1 mGy, DLP 664 mGy-cm. COMPARISON: CT 11/29/2016 FINDINGS: Lower thorax: Normal Liver: Normal Biliary: Status post cholecystectomy. No biliary dilatation. Pancreas: Normal Spleen: Normal Adrenal glands: Normal Genitourinary: No hydronephrosis or urinary calculi. Unremarkable urinary bladder. Vascular: No abdominal aortic aneurysm. Lymph nodes: No lymphadenopathy. Gastrointestinal: No bowel obstruction. Colonic diverticulosis, without diverticulitis. No appendicitis or colitis. Peritoneum: No free air, free fluid or abscess. Reproductive organs: Unremarkable. Musculoskeletal: Mild degenerative enthesopathy of the spine. IMPRESSION: 1. Status post cholecystectomy. 2. Colonic diverticulosis, without diverticulitis. 3. No evidence of bowel obstruction, mass, lymphadenopathy, or acute inflammatory process. RPTAT: DD .Rachid Arnold MD, MD Date Time Electronically viewed and signed by .Rachid Arnold MD, MD on 04/14/2019 16:05 .R/ CC: KASHMIR JORDAN MD [phone] MEDICAL MAKING DECISION: The patient is a 48-year-old male, presenting with acute abdominal pain of unclear etiology, was treated with Zofran IV for nausea, Toradol 30 mg IV for pain with good response, is stable for outpatient follow- up The differential diagnoses considered include but are not limited to cholelithiasis, cholecystitis, choledocholithiasis, cholangitis, pancreatitis, hepatitis, gastritis, peptic ulcer disease, gastric ulcer, appendicitis, cystitis, diverticulitis, partial small bowel obstruction. Departure Diagnosis: Primary Impression: Abdominal pain Condition: Good Comments He was discharged with Motrin The patient's blood pressure was elevated (>120/80) but appears stable without evidence of hypertension emergency or urgency. The patient was counseled about the risks of hypertension and urged to pursue outpatient monitoring and therapy within a week with their primary care physician. I discussed the findings with the patient. I advised the patient to follow-up with the primary physician in the morning and return if any concern. Disclaimer: Inadvertent spelling and grammatical errors are likely due to EHR/dictation software use and do not reflect on the overall quality of patient care. Also, please note that the electronic time recorded on this note does not necessarily reflect the actual time of the patient encounter. KASHMIR JORDAN MD Apr 14, 2019 15:23
[2019-04-14] MEDS ORDERED: KETOROLAC 30 MG INJ IV STA (15:27)
[2019-04-14] MEDS ORDERED: ONDANSETRON 4 MG INJ IV STA (15:27)
[2019-04-14] MEDS ORDERED: IBUP-1561 PO (16:13)
[2019-04-14] MEDS ORDERED: SOD CHLORIDE 0.9% 1,000 ML IV ONE (17:00)
[2019-04-14] MEDS ORDERED: SULF1TAB31 PO (17:15)
[2019-04-14] MEDS ORDERED: IBUP-1542 PO (18:17)
[2019-04-14 18:55] VITALS: BP 119/95; PULSE 66; RESP 15
== END 2019-04-14 19:10 | disposition home or self-care (01) ==
LOC: E/R 14:51
DX: R10.9 Unspecified abdominal pain (principal); E11.9 Type 2 diabetes mellitus without complications
CPT/HCPCS: 36415; 74176; 80053; 81003; 82962; 83690; 85025; 93005; 96374; 96375; 99285; J1885; J2405; J7030